=== PATIENT | female | born 1940 | race Caucasian/White ===

== ENCOUNTER 2021-08-02 12:43 | Inpatient (IN) | payer MEDICARE, MEDICAID ==
[2021-08-02] MEDS ORDERED: Senokot S 8.6-50 MG TAB PO PRN (13:56)
[2021-08-02] MEDS ORDERED: Acetaminophen 325 MG TAB PO PRN (13:56)
[2021-08-02] MEDS ORDERED: Acetaminophen 650 MG Suppository PR PRN (13:56)
[2021-08-02] MEDS ORDERED: Heparin 5,000 UNITS/ML VIAL SC SCH (15:00)
[2021-08-02 15:08] LABS: CKMB 2.5 ng/mL (0-6.6)
[2021-08-02] MEDS ORDERED: Melatonin 3 MG TAB PO PRN (16:03)
[2021-08-02 18:46] LABS: Lactic Acid 2.3 mmol/L (0.5-2.2)
[2021-08-02 18:54] LABS: Troponin I 0.062 ng/mL (< 0.028)
[2021-08-02] MEDS ORDERED: Heparin 10,000 UNITS/ 10 ML VIAL SLOW IVP SCH (19:45)
[2021-08-02] MEDS ORDERED: Heparin 25,000 units/D5W 500 ML IVPB SCH (19:45)
[2021-08-02] MEDS ORDERED: MEROPENEM 1 GM/50 ML 1 GM in Premix Bag 1 BAG IVPB SCH (20:00)
[2021-08-02 20:54] LABS: Hemoglobin 9.5 g/dL (12.0-15.5); Platelet Count 336 10x3/uL (150-450)
[2021-08-02] MEDS ORDERED: Vancomycin HCl 25 MG/ML Oral PO SCH ×2 (21:00→22:00)
[2021-08-02] MEDS: Atorvastatin Calcium 20 MG TAB PO SCH (21:25)
[2021-08-02] MEDS: Sodium Bicarbonate Tab 325 MG TAB PO SCH (21:25)
[2021-08-02] MEDS: Saccharomyces boulardii 250 MG CAP PO SCH (21:25)
[2021-08-02] MEDS: Famotidine 20 MG TAB PO SCH (21:25)
[2021-08-02 22:57] LABS: Lactic Acid 1.8 mmol/L (0.5-2.2)
[2021-08-03] MEDS ORDERED: Nystatin Powder 15 GM BOT TOP PRN (03:01)
[2021-08-03] MEDS: MEROPENEM 1 GM/50 ML 1 GM in Premix Bag 1 BAG IVPB SCH ×2 (04:02→16:07)
[2021-08-03 04:05] LABS: ALT (SGPT) 28 U/L (8-55); AST (SGOT) 32 U/L (5-34); Albumin 1.7 g/dL (3.4-4.8); Alkaline Phosphatase 177 U/L (40-110); Anion Gap 14 mmol/L (10-20); BUN (Urea Nitrogen) 24 mg/dL (9.8-20.1); Bilirubin, Total 0.8 mg/dL (0.2-1.2); Calc. Creatinine Clearance 57 mL/min (70-130); Calcium 7.2 mg/dL (7.8-10.44); Carbon Dioxide 18 mmol/L (23-31); Chloride 107 mmol/L (98-107); Globulin 2.4 g/dL (2.4-3.5); Glucose 100 mg/dL (83-110); Protein, Total 4.1 g/dL (5.8-8.1); Sodium 136 mmol/L (136-145)
[2021-08-03 04:07] LABS: Potassium 2.8 mmol/L (3.5-5.1)
[2021-08-03 04:20] LABS: Hemoglobin 8.5 g/dL (12.0-15.5); Mean Corpuscular HGB CONC 32.2 g/dL (32.0-36.0); Mean Corpuscular Volume 93.3 fl (81.6-98.3); Mean Platelet Volume 9.5 fl (7.4-10.4); Platelet Count 306 10x3/uL (150-450); RBC Distribution Width 16.8 % (11.5-14.5); Red Blood Cell (RBC) Count 2.83 10x6/uL (3.90-5.03); White Blood Cell (WBC) Count 37.3 10x3/uL (3.5-10.5)
[2021-08-03] MEDS: Potassium Chloride 20 MEQ in Premix Bag 1 BAG IVPB SCH ×3 (04:23→08:08)
[2021-08-03 04:32] LABS: INR-International Normal Ratio 2.3; Prothrombin Time 24.6 sec (9.5-12.1)
[2021-08-03 04:39] LABS: PTT Greater than 139.0 sec (22.0-33.0)
[2021-08-03 04:41] LABS: MDiff Complete? YES
[2021-08-03 04:57] LABS: Lymphocytes 4 % (21-51); Monocytes 2 % (0-10); Neutrophil 94 % (42-75)
[2021-08-03 04:59] LABS: Anisocytosis SLIGHT = 6-15 cells (100X) (0-5/hpf); Platelet Morphology Comment Appears Adequate
[2021-08-03] MEDS ORDERED: Magnesium 2 GM/50 ML 2 GM in Premix Bag 1 BAG IVPB SCH (05:00)
[2021-08-03 07:04] LABS: PTT Greater than 139.0 sec (22.0-33.0)
[2021-08-03 08:04] VITALS: BMI 31.1
[2021-08-03] MEDS: Vancomycin HCl 1 GM in Sodium Chloride 0.9% 250 ML 250 ML IVPB SCH (08:07)
[2021-08-03] MEDS: Multivit, Therapeutic 1 TAB PO SCH (08:08)
[2021-08-03] MEDS: Clopidogrel Bisulfate 75 MG TAB PO SCH (08:09)
[2021-08-03] MEDS: Sodium Bicarbonate Tab 325 MG TAB PO SCH ×3 (08:09→20:28)
[2021-08-03] MEDS: Saccharomyces boulardii 250 MG CAP PO SCH ×3 (08:09→20:28)
[2021-08-03] MEDS: Vancomycin HCl 25 MG/ML Oral PO SCH ×2 (08:10→20:28)
[2021-08-03] MEDS: Albumin 25% 25 GM/100 ML BOT IVPB SCH (10:53)
[2021-08-03] MEDS ORDERED: Albumin 25% 25 GM/100 ML BOT IVPB SCH (11:45)
[2021-08-03 12:57] LABS: Magnesium 1.5 mg/dL (1.6-2.6); Potassium 3.7 mmol/L (3.5-5.1)
[2021-08-03] MEDS ORDERED: Famotidine/PF 20 mg/2ml Vial SLOW IVP SCH (15:30)
[2021-08-03] MEDS ORDERED: methylPREDNISolone Sod Succ/PF 125 MG/2 ML VIAL IVP SCH (15:30)
[2021-08-03] MEDS ORDERED: diphenhydrAMINE 50 MG/ML VIAL IVP SCH (15:30)
[2021-08-03 15:37] LABS: PTT Greater than 139.0 sec (22.0-33.0)
[2021-08-03] MEDS ORDERED: Dextrose 50% Abboject 50 ML SYRINGE ONE (16:17)
[2021-08-03] MEDS: Hyoscyamine Sulfate ER 0.375 mg Tablet PO SCH (20:28)
[2021-08-03] MEDS: Atorvastatin Calcium 20 MG TAB PO SCH (20:28)
[2021-08-03] MEDS: Famotidine 20 MG TAB PO SCH (20:28)
[2021-08-04 03:54] LABS: #Monocytes 0.5 10x3/uL (0.0-1.1); #Neutrophils 13.8 10x3/uL (1.5-8.4); %Basophils 0.1 % (0.0-2.0); %Eosinophils 0.1 % (0.0-6.0); %Lymphocytes 2.8 % (18.0-47.0); %Neutrophils 89.1 % (40.0-75.0); Hemoglobin 7.1 g/dL (12.0-15.5); Mean Corpuscular HGB CONC 32.4 g/dL (32.0-36.0); Mean Corpuscular Hemoglobin 30.5 pg (27.0-33.0); Mean Platelet Volume 9.3 fl (7.4-10.4); Platelet Count 248 10x3/uL (150-450); RBC Distribution Width 16.8 % (11.5-14.5); Red Blood Cell (RBC) Count 2.33 10x6/uL (3.90-5.03); White Blood Cell (WBC) Count 15.5 10x3/uL (3.5-10.5)
[2021-08-04 04:00] LABS: Anion Gap 14 mmol/L (10-20); BUN (Urea Nitrogen) 22 mg/dL (9.8-20.1); Calc. Creatinine Clearance 58 mL/min (70-130); Calcium 7.6 mg/dL (7.8-10.44); Carbon Dioxide 18 mmol/L (23-31); Chloride 108 mmol/L (98-107); Glucose 177 mg/dL (83-110); Potassium 3.7 mmol/L (3.5-5.1); Sodium 136 mmol/L (136-145)
[2021-08-04] MEDS: MEROPENEM 1 GM/50 ML 1 GM in Premix Bag 1 BAG IVPB SCH ×2 (05:38→15:41)
[2021-08-04] MEDS ORDERED: Heparin 5,000 UNITS/ML VIAL SC SCH (06:00)
[2021-08-04] MEDS ORDERED: Electrolyte Replacement Protocol FS PRN (06:30)
[2021-08-04] MEDS ORDERED: Electrolyte Replacement Protocol 1 EACH FS SCH (06:30)
[2021-08-04 06:54] LABS: Magnesium 1.4 mg/dL (1.6-2.6)
[2021-08-04] MEDS: Magnesium 2 GM/50 ML 2 GM in Premix Bag 1 BAG IVPB SCH ×2 (08:02→09:31)
[2021-08-04] MEDS: Vancomycin HCl 1 GM in Sodium Chloride 0.9% 250 ML 250 ML IVPB SCH (08:02)
[2021-08-04] MEDS: Multivit, Therapeutic 1 TAB PO SCH (08:03)
[2021-08-04] MEDS: Saccharomyces boulardii 250 MG CAP PO SCH ×3 (08:03→21:37)
[2021-08-04] MEDS: Hyoscyamine Sulfate ER 0.375 mg Tablet PO SCH ×2 (08:03→21:37)
[2021-08-04] MEDS: Sodium Bicarbonate Tab 325 MG TAB PO SCH ×3 (08:03→21:37)
[2021-08-04] MEDS: Clopidogrel Bisulfate 75 MG TAB PO SCH (08:03)
[2021-08-04] MEDS: Vancomycin HCl 25 MG/ML Oral PO SCH (09:31)
[2021-08-04] MEDS: Albumin 25% 25 GM/100 ML BOT IVPB SCH (09:53)
[2021-08-04] MEDS: HumaLOG 300 UNITS/3 ML VIAL SC PRN ×2 (10:27→16:52)
[2021-08-04] MEDS ORDERED: Lactated Ringer's 1,000 ML IV SCH (10:30)
[2021-08-04] MEDS ORDERED: Fidaxomicin 200 MG TAB PO SCH (11:15)
[2021-08-04 13:17] LABS: Hemoglobin 7.6 g/dL (12.0-15.5)
[2021-08-04 13:36] LABS: INR-International Normal Ratio 1.6; Prothrombin Time 17.4 sec (9.5-12.1)
[2021-08-04 13:36] LABS: Vancomycin, Trough 28.8 ug/mL
[2021-08-04] MEDS ORDERED: Albumin 25% 25 GM/100 ML BOT IVPB SCH (14:15)
[2021-08-04] MEDS: Famotidine 20 MG TAB PO SCH (21:36)
[2021-08-04] MEDS: Atorvastatin Calcium 20 MG TAB PO SCH (21:36)
[2021-08-04 23:32] VITALS: BP 127/39; TEMP 98.8
[2021-08-05] MEDS: Fidaxomicin 200 MG TAB PO SCH ×2 (01:49→08:41)
[2021-08-05 02:12] LABS: #Eosinphils 0.2 10x3/uL (0.0-0.5); #Monocytes 0.8 10x3/uL (0.0-1.1); #Neutrophils 13.5 10x3/uL (1.5-8.4); %Basophils 0.2 % (0.0-2.0); %Lymphocytes 6.3 % (18.0-47.0); %Monocytes 5.1 % (0.0-10.0); %Neutrophils 85.4 % (40.0-75.0); Hemoglobin 9.2 g/dL (12.0-15.5); Mean Corpuscular HGB CONC 33.8 g/dL (32.0-36.0); Mean Corpuscular Hemoglobin 30.2 pg (27.0-33.0); Mean Corpuscular Volume 89.2 fl (81.6-98.3); Mean Platelet Volume 9.6 fl (7.4-10.4); Platelet Count 274 10x3/uL (150-450); RBC Distribution Width 16.7 % (11.5-14.5); Red Blood Cell (RBC) Count 3.05 10x6/uL (3.90-5.03); White Blood Cell (WBC) Count 15.8 10x3/uL (3.5-10.5)
[2021-08-05 02:24] LABS: INR-International Normal Ratio 1.5; PTT 40.9 sec (22.0-33.0); Prothrombin Time 16.6 sec (9.5-12.1)
[2021-08-05 02:33] LABS: Anion Gap 12 mmol/L (10-20); BUN (Urea Nitrogen) 23 mg/dL (9.8-20.1); Calc. Creatinine Clearance 57 mL/min (70-130); Calcium 8.2 mg/dL (7.8-10.44); Carbon Dioxide 19 mmol/L (23-31); Chloride 108 mmol/L (98-107); Glucose 145 mg/dL (83-110); Magnesium 2.3 mg/dL (1.6-2.6); Potassium 3.4 mmol/L (3.5-5.1); Sodium 136 mmol/L (136-145)
[2021-08-05] MEDS: MEROPENEM 1 GM/50 ML 1 GM in Premix Bag 1 BAG IVPB SCH (04:12)
[2021-08-05] MEDS: Saccharomyces boulardii 250 MG CAP PO SCH (08:41)
[2021-08-05] MEDS: Clopidogrel Bisulfate 75 MG TAB PO SCH (08:41)
[2021-08-05] MEDS: Sodium Bicarbonate Tab 325 MG TAB PO SCH (08:41)
[2021-08-05] MEDS: Multivit, Therapeutic 1 TAB PO SCH (08:42)
[2021-08-05] MEDS ORDERED: Vancomycin HCl 1 GM in Sodium Chloride 0.9% 250 ML 250 ML IVPB SCH ×2 (09:00→22:00)
[2021-08-05] MEDS ORDERED: Potassium Bicarbonate/Cit Ac 20 MEQ TAB PO SCH (09:00)
[2021-08-05] MEDS: Hyoscyamine Sulfate ER 0.375 mg Tablet PO SCH (10:43)
== END 2021-08-05 16:27 | DRG 871 ==
LOC: CSHERS 12:43 → CSHIMCU 16:25
PROVIDERS: ADMIT Internal Medicine; ATTEND Family Medicine
PROC: 06HY33Z Insertion of Infusion Device into Lower Vein, Percutaneous Approach (ICD-10-PCS; principal; 2021-08-02)
PROC: 3E033XZ Introduction of Vasopressor into Peripheral Vein, Percutaneous Approach (ICD-10-PCS; 2021-08-02)
DX: A41.9 Sepsis, unspecified organism (principal); R65.21 Severe sepsis with septic shock; I21.A1 Myocardial infarction type 2; Z66 Do not resuscitate; N17.9 Acute kidney failure, unspecified; E87.2 Acidosis; I82.611 Acute embolism and thrombosis of superficial veins of right upper extremity; D62 Acute posthemorrhagic anemia; N39.0 Urinary tract infection, site not specified; A04.71 Enterocolitis due to Clostridium difficile, recurrent; E11.649 Type 2 diabetes mellitus with hypoglycemia without coma; N18.30 Chronic kidney disease, stage 3 unspecified; E11.22 Type 2 diabetes mellitus with diabetic chronic kidney disease; M79.89 Other specified soft tissue disorders; E78.5 Hyperlipidemia, unspecified; K21.9 Gastro-esophageal reflux disease without esophagitis; G25.81 Restless legs syndrome; F41.9 Anxiety disorder, unspecified; E87.6 Hypokalemia; D63.1 Anemia in chronic kidney disease; E83.42 Hypomagnesemia; B96.20 Unspecified Escherichia coli [E. coli] as the cause of diseases classified elsewhere; I12.9 Hypertensive chronic kidney disease with stage 1 through stage 4 chronic kidney disease, or unspecified chronic kidney disease; F32.A Depression, unspecified; I25.10 Atherosclerotic heart disease of native coronary artery without angina pectoris; E11.51 Type 2 diabetes mellitus with diabetic peripheral angiopathy without gangrene; Z79.02 Long term (current) use of antithrombotics/antiplatelets; Z79.899 Other long term (current) drug therapy; Z88.5 Allergy status to narcotic agent; Z91.013 Allergy to seafood
CPT/HCPCS: 36415; 36416; 36430; 71045; 74177; 80048; 80053; 80202; 82553; 83605; 83735; 84100; 85025; 85610; 85730; 86850; 86900; 86901; 93005; 94760; J1200; J1644; J1815; J2185; J2930; J3370; J3475; J3480; J7050; J7120; P9016; P9047; S0028